=== PATIENT | female | born 1995 | race Caucasian/White ===

== ENCOUNTER 2020-01-20 16:22 | Outpatient (CLI) | payer OTHER, SELFPAY ==
--- NOTE | 2020-01-20 16:32 | ECG_ITS ---
Measurements Intervals [place] Rate: 83 P: 2 ND: 146 QRS: 19 QRSD: 83 T: 39 QT: 352 QTc: 414 Interpretive Statements SINUS RHYTHM RSR' IN V1 OR V2, PROBABLY NORMAL VARIANT BASELINE ARTIFACT- II, III, AVF BORDERLINE ECG Electronically Signed On 01-20-2020 16:49:53 CDT by Wilmer Ocampo D.O.
[2020-01-20 16:54] LABS: Hematocrit 35.3 % (37.0-47.0); Hemoglobin 11.9 g/dL (12.0-15.0); Mean Corpuscular HGB Conc 33.7 g/dl (32-36); Mean Corpuscular Hemoglobin 29.5 pg (26-34); Mean Corpuscular Volume 87.4 fl (80-100); Mean Platelet Volume 10.5 fl (7.4-10.4); Platelet Count Result 271 k/mm3 (150-375); Red Blood Count 4.04 M/mm3 (4.2-5.4); Red Cell Distribution Width 12.6 % (11.5-14.5); White Blood Count 3.7 K/mm3 (4.5-10.0)
[2020-01-20 17:08] LABS: Blood Urea Nitrogen 12 mg/dL (7-17); Calcium 9.1 mg/dL (8.4-10.2); Carbon Dioxide 28 mmol/L (22-30); Chloride 106 mmol/L (98-107); Estimated Glomerular Filt Rate > 60; Glucose 82 mg/dL (65-105); Potassium 3.9 mmol/L (3.4-5.0); Sodium 141 mmol/L (137-145)
[2020-01-20 17:46] LABS: Vitamin D 25 Hydroxy 59.9 ng/mL
== END 2020-01-20 16:23 | disposition home or self-care (01) ==
PROVIDERS: Visit Provider Nurse Practitioner Family
DX: R07.9 Chest pain, unspecified (principal); R20.0 Anesthesia of skin; R20.2 Paresthesia of skin; E55.9 Vitamin D deficiency, unspecified; R94.31 Abnormal electrocardiogram [ECG] [EKG]
CPT/HCPCS: 36415; 80048; 82306; 82607; 84443; 85027; 93005

== ENCOUNTER 2020-01-23 14:16 | Outpatient (CLI) | payer OTHER, SELFPAY ==
--- NOTE | ~2020-01-23 | US_ITS ---
EXAMINATION: US venous doppler [facility] DATE: 01/23/2020 14:04 INDICATION: Lower limb swelling. TECHNIQUE: Grayscale ultrasound images without and with compression and Doppler ultrasound images of the bilateral lower extremity veins were obtained. COMPARISON: None. FINDINGS: The visualized portions of right common femoral vein, profunda (deep) femoral vein, femoral vein, pop liteal vein, peroneal veins, posterior tibial veins, and greater saphenous vein outflow are patent. The visualized portions of left common femoral vein, profunda femoral vein, femoral vein, popliteal v ein, peroneal veins, posterior tibial veins, and greater saphenous vein outflow are patent. IMPRESSION: 1. No deep venous thrombosis. Reviewed, dictated and finalized at location E.
[2020-01-23 14:50] LABS: Basophils Percent Auto 0.2 % (0.2-1.2); Eosinophils Absolute Auto 0.1 K/mm3 (0-0.3); Eosinophils Percent Auto 1.1 % (0-4.4); Hematocrit 38.5 % (37.0-47.0); Hemoglobin 12.9 g/dL (12.0-15.0); Immature Granulocyte Absolute 0.01 K/mm3 (0.00-0.031); Immature Granulocyte Percent A 0.2 % (0-0.5); Lymphocytes Absolute Auto 1.02 K/mm3 (0.9-3.2); Lymphocytes Percent Auto 18.1 % (18.3-44.2); Mean Corpuscular HGB Conc 33.5 g/dl (32-36); Mean Corpuscular Hemoglobin 29.7 pg (26-34); Mean Corpuscular Volume 88.5 fl (80-100); Mean Platelet Volume 10.9 fl (7.4-10.4); Monocytes Absolute Auto 0.4 K/mm3 (0.1-0.6); Monocytes Percent Auto 7.7 % (2.6-8.5); Neutrophils Absolute Auto 4.1 K/mm3 (1.3-6.7); Neutrophils Percent Auto 72.7 % (45.5-73.1); Platelet Count Result 254 k/mm3 (150-375); Red Blood Count 4.35 M/mm3 (4.2-5.4); Red Cell Distribution Width 12.8 % (11.5-14.5); White Blood Count 5.6 K/mm3 (4.5-10.0)
[2020-01-23 16:47] LABS: Iron 45 ug/dL (37-170)
[2020-01-23 17:03] LABS: Percent Iron Saturation 8 % (20-50)
== END 2020-01-23 14:17 | disposition home or self-care (01) ==
PROVIDERS: Visit Provider Nurse Practitioner Family
DX: D64.9 Anemia, unspecified (principal); L81.9 Disorder of pigmentation, unspecified; M79.89 Other specified soft tissue disorders
CPT/HCPCS: 36415; 83540; 83550; 85025; 93970

== ENCOUNTER 2020-02-03 08:46 | Outpatient (CLI) | payer OTHER, SELFPAY ==
--- NOTE | ~2020-02-03 | US_ITS ---
EXAMINATION: US art doppler w press LE BI DATE: 02/03/2020 09:45 CDT INDICATION: Disorder of pigmentation. History of smoking. Numbness. TECHNIQUE: Segmental pressures and plethysmographic and Doppler waveforms of the brachial and lower e xtremity arteries were obtained. COMPARISON: None. FINDINGS: Right and left brachial artery pressures of 96 mm Hg and 115 mm Hg, respectively, are concordant (nor mal difference <= 30 mmHg). The right high-thigh pressure index is 1.05 (normal > 1.2). The right ankle-brachial index (DEIRDRE) is 1 .06 (normal >= 0.9-1.0). The right great toe-brachial index (TBI) is 0.72 (normal >= 0.60). The right lower extremity segmental pressure gradients are normal (normal gradients <= 20-30 mmHg between mary cent levels on the same leg or the same levels on the two legs). Arterial Doppler waveforms are bipha sic and triphasic. The left high-thigh pressure index is 1.08. The left DEIRDRE is 1.08. The left TBI is 0.73. The left lowe r extremity segmental pressure gradients are normal. Arterial Doppler waveforms are mixed biphasic an d triphasic. IMPRESSION: 1. Normal bilateral ankle and toe brachial indices. Reviewed, dictated and finalized at location A.
== END 2020-02-03 08:47 | disposition home or self-care (01) ==
PROVIDERS: Visit Provider Nurse Practitioner Family
DX: L81.9 Disorder of pigmentation, unspecified (principal)
CPT/HCPCS: 93923

== ENCOUNTER 2020-03-25 14:16 | Emergency (ER) | payer OTHER, MEDICAID, SELFPAY ==
--- NOTE | ~2020-03-25 | XR_ITS ---
XR foot LT min 3V DATE: 03/25/2020 14:45 INDICATION: Injury 6 days ago; lateral left foot pain. TECHNIQUE: 4 views COMPARISON: None FINDINGS: There is a recent No other fracture or dislocation. Intra-articular transverse nondisplaced fracture of the base of fif th metatarsal bone. IMPRESSION: Nondisplaced intra-articular fracture of the base of the fifth metatarsal bone Reviewed, dictated and finalized at location B. IMPRESSION: Nondisplaced intra-articular fracture of the base of the fifth meta tarsal bone
[2020-03-25 14:32] VITALS: BP 118/66; PULSE 87; RESP 16; TEMP 37.2; O2SAT 99
--- NOTE | 2020-03-25 15:17 | ED.LOWEXIN ---
HPI - Extremity Injury (Lower) General Chief Complaint: Extremity Injury, Lower Stated Complaint: foot pain Time Seen by Provider: 03/25/20 15:13 Source: patient and RN notes reviewed Mode of arrival: ambulatory Limitations: no limitations History of Present Illness HPI Narrative: 24-year-old female presents with concern for left foot pain. Reports 1 week ago she was walking and her foot slipped causing it to roll. Reports immediate pain in the left lateral foot. Reports she has been using ice and trying to limp and not put weight on the foot. Denies any other mention. MD complaint: foot injury Injury: Left: foot Related Data Allergies Allergy/AdvReac Type Severity Reaction Status Date / Time cefdinir Allergy Intermediate Rash Verified 03/25/20 14:49 ciprofloxacin Allergy Intermediate Rash Verified 03/25/20 14:49 dexamethasone Allergy Intermediate Unknown Verified 03/25/20 14:49 Review of Systems Review of Systems: Narrative: CONSTITUTIONAL: Denies malaise, chills, sweats, or fever. SKIN: Denies rash or itching. MUSCULOSKELETAL: Reports left foot pain NEUROLOGIC: Denies numbness, weakness All systems reviewed & are unremarkable except as noted in HPI and below PMFSH Social History Social History Smoking status: Never smoker Alcohol intake: never Gender identity (if verbalized by the patient): Female Comments At time of signature, agree with nursing past medical, surgical, social and family history. There is no relevant family history pertinent to the presenting complaint Exam Narrative: Exam Narrative: GENERAL: Well-appearing, well-nourished, and in no acute distress. HEAD: Normocephalic, atraumatic. EYES: PERRLA, conjunctivae clear NECK: Supple. CHEST: Speaks in full sentences. No respiratory distress. HEART: Regular rate and rhythm. Normal and equal peripheral pulses. EXTREMITIES: Left foot, digits has normal strength and sensation, normal range of motion. Mild dorsal edema. 5/5 strength with ankle and digit flexion and extension. Normal sensation with sensitivity to light touch and pain. No open wounds, no skin tenting, no devitalized tissue or atrophy, no trophic changes, mild lateral ecchymosis, no obvious deformity, alignment normal, no point tenderness, nearby joints and structures intact. Distal pulses palpable and equal bilaterally, skin warm, dry, pink. Capillary refill less than 3 seconds. SKIN: Warm, dry, no rash. NEURO: Alert and oriented x3. PSYCH: Normal mood and affect Course Course Emergency Course: Patient is aware of diagnosis, understands and agrees to treatment plan. Anticipatory guidance given. Patient agrees to follow-up as directed and is aware of reasons to seek care at the emergency department. Portions of this record may have been created with voice recognition software Vital Signs Vital signs: Vital Signs Temperature 98.9 F 03/25/20 14:32 Pulse Rate 87 03/25/20 14:32 Respiratory Rate 16 03/25/20 14:32 Blood Pressure 118/66 03/25/20 14:32 Pulse Oximetry 99 03/25/20 14:32 Temperature 98.9 F 03/25/20 14:32 Pulse Rate 87 03/25/20 14:32 Respiratory Rate 16 03/25/20 14:32 Blood Pressure 118/66 03/25/20 14:32 Pulse Oximetry 99 03/25/20 14:32 Reviewed. MDM - Extremity Injury (Lower) Differential Diagnosis Differential diagnosis: Likely other (Foot fracture, foot) Imaging Data My impression: Images reviewed, interpreted by radiologist, agree, see report. Radiologist's impression: XR foot LT min 3V DATE: 03/25/2020 14:45 INDICATION: Injury 6 days ago; lateral left foot pain. TECHNIQUE: 4 views COMPARISON: None FINDINGS: There is a recent No other fracture or dislocation. Intra-articular transverse nondisplaced fracture of the base of fifth metatarsal bone. IMPRESSION: Nondisplaced intra-articular fracture of the base of the fifth metatarsal bone Critical Care Time Critical Ca
== END 2020-03-25 15:28 | disposition home or self-care (01) ==
PROVIDERS: Emergency Provider Nurse Practitioner; PCP Family Medicine
DX: S92.355A Nondisplaced fracture of fifth metatarsal bone, left foot, initial encounter for closed fracture (principal); X50.9XXA Other and unspecified overexertion or strenuous movements or postures, initial encounter; F90.9 Attention-deficit hyperactivity disorder, unspecified type
CPT/HCPCS: 73630; 99214; G0463

== ENCOUNTER 2020-05-13 13:29 | Outpatient (CLI) | payer OTHER, SELFPAY ==
[2020-05-13 13:50] LABS: Hemoglobin 12.5 g/dL (12.0-15.0); Mean Corpuscular HGB Conc 33.8 g/dl (32-36); Mean Corpuscular Volume 88.9 fl (80-100); Mean Platelet Volume 10.2 fl (7.4-10.4); Platelet Count Result 257 k/mm3 (150-375); Red Blood Count 4.16 M/mm3 (4.2-5.4); Red Cell Distribution Width 13.3 % (11.5-14.5); White Blood Count 3.9 K/mm3 (4.5-10.0)
[2020-05-13 15:00] LABS: Anion Gap 11 mmol/L (8-16); Blood Urea Nitrogen 15 mg/dL (7-17); Carbon Dioxide 27 mmol/L (22-30); Chloride 100 mmol/L (98-107); Estimated Glomerular Filt Rate > 60; Glucose 84 mg/dL (65-105); Sodium 138 mmol/L (137-145)
== END 2020-05-13 13:30 | disposition home or self-care (01) ==
PROVIDERS: PCP Family Medicine; Visit Provider Nurse Practitioner Family
DX: R31.9 Hematuria, unspecified (principal)
CPT/HCPCS: 36415; 80048; 85027

== ENCOUNTER → 2021-09-17 02:37 | Outpatient (CLI) | payer OTHER, SELFPAY ==
[2021-09-17 23:19] LABS: SARS-CoV-2 RNA PCR Negative
== END ==
PROVIDERS: PCP Family Medicine; Visit Provider Physician Assistant Medical
DX: R68.89 Other general symptoms and signs (principal); Z20.822 Contact with and (suspected) exposure to COVID-19
CPT/HCPCS: C9803; U0003; U0005

== ENCOUNTER → 2021-10-04 09:11 | Outpatient (CLI) | payer OTHER, SELFPAY ==
[2021-10-04 19:06] LABS: SARS-CoV-2 RNA PCR Positive
== END ==
PROVIDERS: PCP Family Medicine; Visit Provider Nurse Practitioner Family
DX: U07.1 COVID-19 (principal)
CPT/HCPCS: C9803; U0003; U0005

== ENCOUNTER 2024-02-13 11:32 | Outpatient (CLI) | payer BC, SELFPAY ==
[2024-02-13 13:25] LABS: Hepatitis B Surface Anti Res Negative
== END 2024-02-13 11:33 | disposition home or self-care (01) ==
LOC: ANHLAB 11:36
PROVIDERS: PCP Family Medicine; Visit Provider Nurse Practitioner Family
DX: Z71.84 Encounter for health counseling related to travel (principal); Z78.9 Other specified health status
CPT/HCPCS: 36415; 86706